=== PATIENT | male | born 1990 | race American Indian/Alaskan Native ===

== ENCOUNTER 2016-12-12 12:37 | Emergency (ER) | payer SELFPAY ==
--- NOTE | 2016-12-12 13:44 | XRay Report ---
XRAY RIGHT HAND THREE VIEWS: 12/12/16 12:37:00 CLINICAL: Trauma and pain. FINDINGS: Normal bones, joints and soft tissues. No foreign body identified. No fracture or dislocation. IMPRESSION: Normal.
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
[2016-12-12] MEDS ORDERED: MOTRIN PO ONE (16:30)
[2016-12-12] MEDS ORDERED: BOOSTRIX IM ONE (16:30)
[2016-12-12] MEDS ORDERED: NORCO 5/325 PO ONE (17:47)
[2016-12-12 17:58] VITALS: BP 130/82
== END 2016-12-12 17:58 | disposition home or self-care (01) ==
LOC: ED 12:37
DX: S40.811A Abrasion of right upper arm, initial encounter (principal); S69.91XA Unspecified injury of right wrist, hand and finger(s), initial encounter; F12.10 Cannabis abuse, uncomplicated; F17.200 Nicotine dependence, unspecified, uncomplicated; X58.XXXA Exposure to other specified factors, initial encounter; Y93.9 Activity, unspecified; Y99.9 Unspecified external cause status; Y92.89 Other specified places as the place of occurrence of the external cause
CPT/HCPCS: 90471; 90715; 99283